=== PATIENT | male | born 1995 | race Caucasian/White ===

== ENCOUNTER 2023-08-17 21:02 | Emergency (ER) | payer SELFPAY ==
[~2023-08-17] VITALS: Ht 177.8 cm; Wt 93.0 kg
[2023-08-17 21:06] VITALS: BP 119/71; PULSE 110; RESP 18; TEMP 97; O2SAT 97
== END 2023-08-17 21:40 | disposition home or self-care (01) ==
LOC: ER 21:02
DX: F10.129 Alcohol abuse with intoxication, unspecified (principal); Y90.9 Presence of alcohol in blood, level not specified
CPT/HCPCS: 99283